=== PATIENT | female | born 1955 | race Caucasian/White ===

== ENCOUNTER 2019-10-18 09:16 | Emergency (ER) | payer MEDICARE, BC ==
[2019-10-18 09:55] VITALS: BP 144/77
--- NOTE | 2019-10-18 11:41 | UC ---
Knee Pain HPI - HPI Summary HPI Summary: Pt presents with c/o left knee pain that began two weeks ago after slipping on ice and twisting knee. Pt states she had meniscus repair at age 16. Pt states pain is diffuse. - History of Current Complaint Chief Complaint: UCLowerExtremity Stated Complaint: L KNEE INJ Time Seen by Provider: 10/18/19 10:28 Hx Obtained From: Patient ?: No Onset/Duration: Lasting Weeks, Still Present Severity Initially: Moderate Severity Currently: Moderate Pain Intensity: 5 Pain Scale Used: 0-10 Numeric Character: Dull, Aching, Stiffness Aggravating Factor(s): Movement, Weight Bearing, Prolonged Standing Alleviating Factor(s): Rest, Position Associated Signs And Symptoms: Positive: Negative Able to Bear Weight: Yes - painful - Risk Factors Septic Arthritis Risk Factor: Negative Gout Risk Factor: Age ^ 38 - Allergies/Home Medications Allergies/Adverse Reactions: Allergies Allergy/AdvReac Type Severity Reaction Status Date / Time htcz Allergy Hives Uncoded 10/18/19 09:55 Home Medications: Home Medications Citalopram TAB* [Celexa TAB*] 40 mg PO DAILY 10/18/19 [History Confirmed ] Mycophenolate Mofetil TAB(*) [Cellcept TAB(*)] 500 mg PO TID 10/18/19 [History Confirmed 10/18/19] Nebivolol HCl [Bystolic] 10 mg PO DAILY 10/18/19 [History Confirmed 10/18/19] Tacrolimus [Tacrolimus 0.5 MG-] 0.5 mg PO BID 10/18/19 [History Confirmed ] Ursodiol CAP* [Actigall CAP 300 MG*] 300 mg PO DAILY 10/18/19 [History Confirmed 10/18/19] amLODIPine TAB* [Norvasc 5 mg TAB*] 5 mg PO DAILY 10/18/19 [History Confirmed ] PMH/Surg Hx/FS Hx/Imm Hx Previously Healthy: Yes Cardiovascular History: Cardiac Disease, Hypertension - Surgical History Surgery Procedure, Year, and Place: c-sections. choly. lung transplant. knee and back surgery - Family History Known Family History: Positive: Cardiac Disease - Social History Occupation: Retired Lives: With Family Alcohol Use: Occasionally Substance Use Type: None Smoking Status (MU): Never Smoked Tobacco Have You Smoked in the Last Year: No Review of Systems All Other Systems Reviewed And Are Negative: Yes Constitutional: Positive: Negative Skin: Positive: Negative Eyes: Positive: Negative ENT: Positive: Negative Respiratory: Positive: Negative Cardiovascular: Positive: Negative Gastrointestinal: Positive: Negative Genitourinary: Positive: Negative Motor: Positive: Decreased ROM - pain with ROM left knee Neurovascular: Positive: Negative Musculoskeletal: Positive: Arthralgia, Decreased ROM - pain with ROM left knee, Myalgia Neurological: Positive: Negative Psychological: Positive: Negative Is Patient Immunocompromised?: No Physical Exam Triage Information Reviewed: Yes Appearance: Well-Appearing, Pain Distress - with rom PE Vital Signs: Initial Vital Signs Temp 98.1 F 10/18/19 09:51 Pulse 74 10/18/19 09:51 Resp 18 10/18/19 09:51 BP 144/77 10/18/19 09:51 Pulse Ox 99 10/18/19 09:51 Vital Signs Reviewed: Yes Eye Exam: Normal ENT Exam: Normal Dental Exam: Normal Neck exam: Normal Respiratory Exam: Normal Cardiovascular Exam: Normal Musculoskeletal: Positive: ROM Limited @ - pain with ROm Neurological Exam: Normal Psychological Exam: Normal Skin Exam: Normal Diagnostics - Radiology No standard instances Radiology Interpretation Completed By: Radiologist - negative for fracture Knee Pain Course/Dx - Differential Dx/Diagnosis Differential Diagnosis/HQI/PQRI: Internal Derangement Of Knee, Sprain, Strain Provider Diagnosis: Left knee sprain Discharge ED - Sign-Out/Discharge Documenting (check all that apply): Patient Departure All imaging exams completed and their final reports reviewed: Yes - Discharge Plan Condition: Stable Disposition: HOME Prescriptions: traMADol TAB* [Ultram*] 25 mg PO Q8H PRN #6 tab MDD 3 tabs PRN Reason: Pain - Mild Patient Education Materials: Knee Pain (ED), Arthralgia (ED) Referrals: Edward Rodriges MD [Medical Doctor] - As Soon As Possible Jose Rafael Urias MD [Primary Care Provider] - Additional Instructions: Please follow up with an orthopedic provider as soon as possible. - Billing Disposition and Condition Condition: STABLE Disposition: Home - Attestation Statements Provider Attestation: Per institutional requirements, I have reviewed the chart, however, I was not consulted specifically or made aware of this patient by the midlevel provider. I did not personally evaluate, interact with , or disposition this patient.
== END 2019-10-18 11:28 | disposition home or self-care (01) ==
LOC: UCCORT 09:16
DX: S83.92XA Sprain of unspecified site of left knee, initial encounter (principal); I10 Essential (primary) hypertension; Z91.09 Other allergy status, other than to drugs and biological substances; Z79.899 Other long term (current) drug therapy; X50.1XXA Overexertion from prolonged static or awkward postures, initial encounter; W00.0XXA Fall on same level due to ice and snow, initial encounter; Y92.9 Unspecified place or not applicable
CPT/HCPCS: 99212; G0463